=== PATIENT | female | born 1940 | race Caucasian/White ===

== ENCOUNTER 2025-05-22 18:20 | Inpatient (IN) | payer MEDICARE ==
[2025-05-22] MEDS ORDERED: niCARdipine 25 MG in Sodium Chloride 0.9% 250 ML 250 ML IVPB SCH (20:30)
[2025-05-22 20:45] VITALS: BMI 26.9
[2025-05-22 21:05] LABS: Anion Gap 13 mmol/L (10-20); BUN (Urea Nitrogen) Less than 4 mg/dL (9.8-20.1); Calc. Creatinine Clearance 95 mL/min (70-130); Calcium 8.1 mg/dL (7.8-10.44); Carbon Dioxide 27 mmol/L (23-31); Chloride 94 mmol/L (98-107); Glucose 115 mg/dL (83-110); Magnesium 1.7 mg/dL (1.6-2.6); Potassium 2.6 mmol/L (3.5-5.1); Sodium 131 mmol/L (136-145)
[2025-05-22] MEDS ORDERED: Dextrose 50% Abboject 50 ML SYRINGE SLOW IVP PRN (21:41)
[2025-05-22] MEDS ORDERED: Glucagon 1 MG/ML KIT IM PRN (21:41)
[2025-05-22] MEDS ORDERED: Electrolyte Replacement Protocol 1 EACH FS SCH (21:45)
[2025-05-22] MEDS ORDERED: Potassium Chloride 20 MEQ in Premix 1 BAG IVPB PRN (22:00)
[2025-05-22] MEDS ORDERED: PHOS-NAK 1 PKT PACK PO PRN (22:00)
[2025-05-22] MEDS: Magnesium 2 GM/50 ML(in water) 2 GM in Premix 1 BAG IVPB PRN (23:13)
[2025-05-22] MEDS: Potassium Chloride 20 MEQ in Premix 1 BAG IVPB SCH (23:14)
[2025-05-23 03:55] LABS: Anion Gap 17 mmol/L (10-20); BUN (Urea Nitrogen) 4 mg/dL (9.8-20.1); Calc. Creatinine Clearance 89 mL/min (70-130); Calcium 8.1 mg/dL (7.8-10.44); Carbon Dioxide 24 mmol/L (23-31); Chloride 97 mmol/L (98-107); Glucose 103 mg/dL (83-110); Magnesium 2.3 mg/dL (1.6-2.6); Potassium 3.6 mmol/L (3.5-5.1); Sodium 134 mmol/L (136-145)
[2025-05-23] MEDS: Furosemide 20 MG TAB PO SCH (09:29)
[2025-05-23] MEDS: Pantoprazole 40 MG VIAL IVP SCH (09:40)
[2025-05-23] MEDS: Mupirocin 1 GM TUBE NASAL DECOLONIZATION NASAL SCH (09:40)
[2025-05-23] MEDS: Acetaminophen 325 MG TAB PO PRN (13:01)
[2025-05-23] MEDS: Losartan 25 MG TAB PO SCH (22:07)
[2025-05-24 03:19] LABS: #Basophils Less than 0.03 10x3/uL (0.0-0.2); #Eosinophils 0.10 10x3/uL (0.0-0.7); #Monocytes 0.40 10x3/uL (0.11-0.59); #Neutrophils 2.66 10x3/uL (1.40-6.50); %Basophils 0.5 % (0.0-1.0); %Eosinophils 2.3 % (0.0-10.0); %Lymphocytes 26.7 % (21.0-51.0); %Monocytes 9.2 % (0.0-10.0); %Neutrophils 61.1 % (42.0-75.0); Hematocrit 29.4 % (36.0-47.0); Hemoglobin 10.2 g/dL (12.0-16.0); Mean Corpuscular Hemoglobin 28.4 pg (27.0-31.0); Mean Corpuscular Volume 81.9 fL (78.0-98.0); Platelet Count 238 10x3/uL (130-400); Red Blood Cell (RBC) Count 3.59 mill/uL (4.20-5.40); White Blood Cell (WBC) Count 4.35 10x3/uL (4.8-10.8)
[2025-05-24 04:06] LABS: Anion Gap 15 mmol/L (10-20); BUN (Urea Nitrogen) 6 mg/dL (9.8-20.1); Calc. Creatinine Clearance 89 mL/min (70-130); Calcium 8.2 mg/dL (7.8-10.44); Carbon Dioxide 27 mmol/L (23-31); Chloride 99 mmol/L (98-107); Glucose 104 mg/dL (83-110); Potassium 2.9 mmol/L (3.5-5.1); Sodium 138 mmol/L (136-145)
[2025-05-24] MEDS ORDERED: Electrolyte Replacement Protocol 1 EACH FS SCH (05:00)
[2025-05-24] MEDS ORDERED: PHOS-NAK 1 PKT PACK PO PRN (05:00)
[2025-05-24] MEDS: Potassium Chloride 20 MEQ in Premix 1 BAG IVPB PRN (05:06)
[2025-05-24 06:05] LABS: Magnesium 1.7 mg/dL (1.6-2.6)
[2025-05-24] MEDS: Magnesium 2 GM/50 ML(in water) 2 GM in Premix 1 BAG IVPB PRN (06:52)
[2025-05-24] MEDS: Furosemide 20 MG TAB PO SCH (09:19)
[2025-05-24] MEDS: Carvedilol 3.125 MG TAB PO SCH ×2 (10:01→17:55)
[2025-05-24] MEDS: FLU (Fluad Triv) 25-26 (65UP)PF 45 MCG/0.5 ML Syringe IM ONE (10:09)
[2025-05-24 12:27] LABS: Magnesium 2.4 mg/dL (1.6-2.6)
[2025-05-24] MEDS ORDERED: levETIRAcetam 500 MG (5 mL) VIAL SLOW IVP SCH ×2 (14:30→21:00)
[2025-05-24] MEDS: Fosphenytoin Sodium 1,200 MG in Sodium Chloride 0.9% 50 ML IVPB SCH (17:53)
[2025-05-25 09:41] LABS: #Basophils Less than 0.03 10x3/uL (0.0-0.2); #Eosinophils 0.03 10x3/uL (0.0-0.7); #Monocytes 0.57 10x3/uL (0.11-0.59); #Neutrophils 3.01 10x3/uL (1.40-6.50); %Basophils 0.2 % (0.0-1.0); %Eosinophils 0.6 % (0.0-10.0); %Lymphocytes 31.5 % (21.0-51.0); %Monocytes 10.8 % (0.0-10.0); %Neutrophils 56.7 % (42.0-75.0); Hematocrit 31.5 % (36.0-47.0); Hemoglobin 10.4 g/dL (12.0-16.0); Mean Corpuscular Hemoglobin 27.9 pg (27.0-31.0); Mean Corpuscular Volume 84.5 fL (78.0-98.0); Platelet Count 236 10x3/uL (130-400); Red Blood Cell (RBC) Count 3.73 mill/uL (4.20-5.40); White Blood Cell (WBC) Count 5.30 10x3/uL (4.8-10.8)
[2025-05-25 09:55] LABS: ALT (SGPT) 13 U/L (Less than 34); AST (SGOT) 22 U/L (11-34); Albumin 2.7 g/dL (3.1-4.5); Alkaline Phosphatase 64 U/L (40-110); Anion Gap 16 mmol/L (10-20); BUN (Urea Nitrogen) 7 mg/dL (9.8-20.1); Bilirubin, Total 0.7 mg/dL (0.3-1.2); Calc. Creatinine Clearance 82 mL/min (70-130); Calcium 8.6 mg/dL (7.8-10.44); Carbon Dioxide 24 mmol/L (23-31); Chloride 100 mmol/L (98-107); Globulin 3.4 g/dL (2.4-3.5); Glucose 115 mg/dL (83-110); Potassium 3.7 mmol/L (3.5-5.1); Sodium 136 mmol/L (136-145)
[2025-05-25] MEDS: Furosemide 40 MG (4 mL) VIAL SLOW IVP SCH (16:59)
[2025-05-25] MEDS: hydrALAZINE 20 MG/ML VIAL SLOW IVP PRN (18:49)
[2025-05-25] MEDS: niCARdipine 25 MG in Sodium Chloride 0.9% 250 ML 250 ML IVPB SCH (20:28)
[2025-05-25] MEDS: Losartan 25 MG TAB PO SCH (20:52)
[2025-05-26 08:19] LABS: #Basophils Less than 0.03 10x3/uL (0.0-0.2); #Eosinophils Less than 0.03 10x3/uL (0.0-0.7); #Monocytes 0.55 10x3/uL (0.11-0.59); #Neutrophils 4.01 10x3/uL (1.40-6.50); %Basophils 0.3 % (0.0-1.0); %Eosinophils 0.3 % (0.0-10.0); %Lymphocytes 24.3 % (21.0-51.0); %Monocytes 9.0 % (0.0-10.0); %Neutrophils 65.8 % (42.0-75.0); Hematocrit 36.5 % (36.0-47.0); Hemoglobin 12.5 g/dL (12.0-16.0); Mean Corpuscular Hemoglobin 28.2 pg (27.0-31.0); Mean Corpuscular Volume 82.2 fL (78.0-98.0); Platelet Count 264 10x3/uL (130-400); Red Blood Cell (RBC) Count 4.44 mill/uL (4.20-5.40); White Blood Cell (WBC) Count 6.10 10x3/uL (4.8-10.8)
[2025-05-26 08:40] LABS: Anion Gap 16 mmol/L (10-20); BUN (Urea Nitrogen) 8 mg/dL (9.8-20.1); Calc. Creatinine Clearance 87 mL/min (70-130); Calcium 8.6 mg/dL (7.8-10.44); Carbon Dioxide 27 mmol/L (23-31); Chloride 96 mmol/L (98-107); Glucose 134 mg/dL (83-110); Potassium 2.7 mmol/L (3.5-5.1); Sodium 136 mmol/L (136-145)
[2025-05-26] MEDS: Potassium Chloride 20 MEQ in Premix 1 BAG IVPB SCH (09:15)
[2025-05-26] MEDS: Multivitamin W/ Minerals 1 TAB PO SCH (10:34)
[2025-05-26 20:50] LABS: Potassium 3.6 mmol/L (3.5-5.1)
[2025-05-27 04:36] LABS: Hematocrit 33.2 % (36.0-47.0); Hemoglobin 11.1 g/dL (12.0-16.0); Mean Corpuscular Hemoglobin 28.4 pg (27.0-31.0); Mean Corpuscular Volume 84.9 fL (78.0-98.0); Platelet Count 257 10x3/uL (130-400); Red Blood Cell (RBC) Count 3.91 mill/uL (4.20-5.40); White Blood Cell (WBC) Count 6.50 10x3/uL (4.8-10.8)
[2025-05-27 04:58] LABS: Anion Gap 17 mmol/L (10-20); BUN (Urea Nitrogen) 13 mg/dL (9.8-20.1); Calc. Creatinine Clearance 63 mL/min (70-130); Calcium 8.7 mg/dL (7.8-10.44); Carbon Dioxide 24 mmol/L (23-31); Chloride 97 mmol/L (98-107); Glucose 115 mg/dL (83-110); Potassium 3.8 mmol/L (3.5-5.1); Sodium 134 mmol/L (136-145)
[2025-05-27 05:07] LABS: Ovalocytes SLIGHT = 2-5 cells HPF (0-1); Plasma Cells 1 % (0-0); Platelet Adequacy Comment Platelets Normal; Polychromasia SLIGHT = 2-3 cells HPF (0-2); Smudge Cells 25.3 %
[2025-05-27] MEDS: levETIRAcetam 500 MG (5 mL) VIAL SLOW IVP SCH ×3 (12:36→21:34)
[2025-05-27] MEDS: Ergocalciferol 1.25 MG(50,000 UNITS) CAP PO SCH (14:19)
[2025-05-27] MEDS ORDERED: levETIRAcetam 500 MG (5 mL) VIAL SLOW IVP SCH (21:00)
[2025-05-28 04:29] LABS: #Basophils 0.04 10x3/uL (0.0-0.2); #Eosinophils 0.07 10x3/uL (0.0-0.7); #Monocytes 0.62 10x3/uL (0.11-0.59); #Neutrophils 2.89 10x3/uL (1.40-6.50); %Basophils 0.7 % (0.0-1.0); %Eosinophils 1.3 % (0.0-10.0); %Lymphocytes 34.4 % (21.0-51.0); %Monocytes 11.2 % (0.0-10.0); %Neutrophils 52.0 % (42.0-75.0); Hematocrit 36.0 % (36.0-47.0); Hemoglobin 11.4 g/dL (12.0-16.0); Mean Corpuscular Hemoglobin 28.1 pg (27.0-31.0); Mean Corpuscular Volume 88.7 fL (78.0-98.0); Platelet Count 233 10x3/uL (130-400); Red Blood Cell (RBC) Count 4.06 mill/uL (4.20-5.40); White Blood Cell (WBC) Count 5.55 10x3/uL (4.8-10.8)
[2025-05-28 05:01] LABS: Anion Gap 15 mmol/L (10-20); BUN (Urea Nitrogen) 15 mg/dL (9.8-20.1); Calc. Creatinine Clearance 61 mL/min (70-130); Calcium 8.8 mg/dL (7.8-10.44); Carbon Dioxide 24 mmol/L (23-31); Chloride 99 mmol/L (98-107); Glucose 86 mg/dL (83-110); Potassium 3.9 mmol/L (3.5-5.1); Sodium 134 mmol/L (136-145)
[2025-05-28 15:59] VITALS: BP 188/81; TEMP 96.4
== END 2025-05-28 17:08 | disposition hospice, inpatient (51) | DRG 64 ==
LOC: CCU 19:14 → 2SE 05-26 16:36
PROVIDERS: ADMIT Internal Medicine; ATTEND Hospitalist
PROC: XX20X89 Monitoring of Brain Electrical Activity, Computer-aided Detection and Notification, New Technology Group 9 (ICD-10-PCS; principal; 2025-05-24)
PROC: 3E02340 Introduction of Influenza Vaccine into Muscle, Percutaneous Approach (ICD-10-PCS; 2025-05-24)
PROC: 05HY33Z Insertion of Infusion Device into Upper Vein, Percutaneous Approach (ICD-10-PCS; 2025-05-24)
PROC: 4A10X4Z Monitoring of Central Nervous Electrical Activity, External Approach (ICD-10-PCS; 2025-05-27)
PROC: 4A10X4Z Monitoring of Central Nervous Electrical Activity, External Approach (ICD-10-PCS; 2025-05-28)
DX: I61.9 Nontraumatic intracerebral hemorrhage, unspecified (principal); G93.41 Metabolic encephalopathy; G40.201 Localization-related (focal) (partial) symptomatic epilepsy and epileptic syndromes with complex partial seizures, not intractable, with status epilepticus; E87.1 Hypo-osmolality and hyponatremia; E85.4 Organ-limited amyloidosis; Z66 Do not resuscitate; I10 Essential (primary) hypertension; I48.0 Paroxysmal atrial fibrillation; E03.9 Hypothyroidism, unspecified; Z96.652 Presence of left artificial knee joint; E11.9 Type 2 diabetes mellitus without complications; E87.6 Hypokalemia; Z90.11 Acquired absence of right breast and nipple; Z85.3 Personal history of malignant neoplasm of breast; Z23 Encounter for immunization; Z79.899 Other long term (current) drug therapy
CPT/HCPCS: 36415; 36416; 70450; 70496; 70498; 70553; 76376; 80048; 80053; 80185; 81001; 82550; 83735; 84484; 85025; 85610; 85730; 87077; 87086; 87186; 90653; 93005; 93010; 95700; 95705; 95711; 95957; 96374; 96375; C9254; J0360; J1815; J1940; J1953; J2060; J2470; J3475; J3480; J7030; J7050; Q2009; Q9967

== ENCOUNTER 2025-05-28 17:43 | Inpatient (IN) | payer OTHER ==
[2025-05-28 18:04] VITALS: BMI 27.3
[2025-05-28] MEDS ORDERED: Hyoscyamine SL 0.125 MG TAB SL PRN (19:00)
[2025-05-28] MEDS: levETIRAcetam 500 MG (5 mL) VIAL SLOW IVP SCH (20:07)
[2025-05-29] MEDS ORDERED: Ondansetron PF 4 MG/2 ML Vial IVP PRN (19:00)
[2025-05-29] MEDS ORDERED: Bisacodyl 10 MG SUPP PR PRN (19:00)
[2025-06-06 15:47] VITALS: BMI 27.1
[2025-06-07] MEDS: Hyoscyamine SL 0.125 MG TAB SL PRN (14:42)
[2025-06-08 06:04] VITALS: BP 49/31; TEMP 103.1
== END 2025-06-08 07:30 | disposition expired | DRG 951 ==
LOC: 2SE 17:43 → SURG B 06-01 16:38
PROVIDERS: ADMIT Family Medicine; ATTEND Family Medicine
DX: Z51.5 Encounter for palliative care (principal); G93.40 Encephalopathy, unspecified; R47.01 Aphasia; E87.1 Hypo-osmolality and hyponatremia; I10 Essential (primary) hypertension; I48.0 Paroxysmal atrial fibrillation; Z98.890 Other specified postprocedural states; E03.9 Hypothyroidism, unspecified; Z85.3 Personal history of malignant neoplasm of breast; M19.90 Unspecified osteoarthritis, unspecified site; E11.9 Type 2 diabetes mellitus without complications; E87.6 Hypokalemia
CPT/HCPCS: 36416; C9254; J1953; J2060; J2272; Q2009